=== PATIENT | female | born 1980 | race Two or more races ===

== ENCOUNTER 2022-10-03 05:20 | Day surgery (SDC) | payer OTHER | END 2022-10-03 12:30 | disposition home or self-care (01) | LOC: AMB-ENDOS 05:20 | PROVIDERS: ATTEND Surgery | DX: Z86.010 Personal history of colon polyps (principal); D37.4 Neoplasm of uncertain behavior of colon; K64.8 Other hemorrhoids; Z20.822 Contact with and (suspected) exposure to COVID-19 ==

== ENCOUNTER 2022-11-13 15:05 | Inpatient (IN) | payer OTHER ==
[~2022-11-13] VITALS: Ht 167.6 cm; Wt 103.0 kg
[2022-11-14] MEDS ORDERED: LEVO-T50 MCG (13:29)
[2022-11-14] MEDS ORDERED: XIGDUO XR 5 MG1 EAC1 (13:30)
[2022-11-14] MEDS ORDERED: GLIMEPIRIDE2 MG (13:30)
[2022-11-14] MEDS ORDERED: LANTUS SOL100 UNIT/1 (13:31)
[2022-11-14] MEDS ORDERED: PROTONIX40 MG PO (14:08)
[2022-11-14] MEDS ORDERED: LIPITOR20 MG PO (14:08)
[2022-11-25] MEDS ORDERED: INTESTINEX680 M1 PO (16:13)
[2022-11-25] MEDS ORDERED: HYOSCYAMINE0.125 M1 SL (16:14)
[2022-11-25] MEDS ORDERED: OXYC1TAB9 PO (16:14)
== END 2022-11-25 17:02 | disposition home or self-care (01) | DRG 331 ==
LOC: SURH 11-21 10:45 → O/R 11-21 11:44 → SURH 11-21 11:44
PROVIDERS: ADMIT Surgery; ATTEND Surgery
PROC: 07BB4ZZ Excision of Mesenteric Lymphatic, Percutaneous Endoscopic Approach (ICD-10-PCS; 2022-11-21)
PROC: 0DTF4ZZ Resection of Right Large Intestine, Percutaneous Endoscopic Approach (ICD-10-PCS; principal; 2022-11-21 12:00)
PROC: 4A12X4Z Monitoring of Cardiac Electrical Activity, External Approach (ICD-10-PCS; 2022-11-22)
DX: D12.0 Benign neoplasm of cecum (principal); R59.0 Localized enlarged lymph nodes; K64.8 Other hemorrhoids; Z20.822 Contact with and (suspected) exposure to COVID-19; E11.9 Type 2 diabetes mellitus without complications

== ENCOUNTER 2025-03-21 09:08 | Outpatient (CLI) | payer OTHER ==
[~2025-03-21 09:08] MED LIST: GLIMEPIRIDE2 MG; HYOSCYAMINE0.125 M1 SL; INTESTINEX680 M1 PO; LANTUS SOL100 UNIT/1; LEVO-T50 MCG; LIPITOR20 MG PO; OXYC1TAB9 PO; PROTONIX40 MG PO; XIGDUO XR 5 MG1 EAC1
== END 2025-03-21 09:11 | disposition home or self-care (01) ==
LOC: NUCLEAR 09:08
PROVIDERS: ATTEND Internal Medicine Sports Medicine
DX: C73 Malignant neoplasm of thyroid gland (principal)

== ENCOUNTER 2025-03-25 09:56 | Outpatient (CLI) | payer OTHER | END 2025-03-25 09:57 | disposition home or self-care (01) | LOC: NUCLEAR 09:56 | PROVIDERS: ATTEND Internal Medicine Sports Medicine | DX: C73 Malignant neoplasm of thyroid gland (principal) ==